=== PATIENT | male | born 1945 | race Caucasian/White ===

== ENCOUNTER → 2018-07-01 | Day surgery (SDC) | payer MEDICARE ==
[2018-06-30 13:28] LABS: BASOPHILS # (AUTO) 0.1 (0.0-0.1); BASOPHILS % 0.9 % (0.0-1.0); EOSINOPHILS # (AUTO) 0.1 (0.0-0.4); EOSINOPHILS % 2.1 % (0.0-6.0); HEMATOCRIT 36.8 % (38.2-49.6); HEMOGLOBIN 11.7 g/dL (14.0-18.0); LYMPHOCYTES # (AUTO) 0.9 (1.0-3.2); MEAN CORPUSCULAR HEMOGLOBIN 29.4 pg (28-32); MEAN CORPUSCULAR HGB CONC 31.8 g/dL (31-35); MEAN CORPUSCULAR VOLUME 92.5 fL (81-99); MONOCYTES # (AUTO) 0.4 (0.2-0.8); MONOCYTES % 7.2 % (4.4-11.3); NEUTROPHILS # (AUTO) 4.3 (2.1-6.9); NEUTROPHILS % 73.3 % (38.7-80.0); PLATELET COUNT 259 x10e3/uL (140-360); RED BLOOD COUNT 3.98 x10e6/uL (4.3-5.7)
[~2018-07-01] MED LIST: ACETAMINOP325 MG/10 PO; AMLODIPINE BESYL5 MG PO; CALCIUM CARBON500 MG PO; CLOPIDOGREL75 MG PO; COLCRYS0.6 MG PO; DICYCLOMINE HCL10 MG PO; DIPHENOXYLATE-1 EACH PO; FAMOTIDINE20 MG PO; FOLIC ACID PO; FUROSEMIDE40 MG PO; GLIMEPIRIDE2 MG PO; GLUCAGON FOR INJ 1 MG VIAL ONE; HYOSCYAMINE SULFATE 0.5 MG/ML AMP ONE; JANUVIA100 MG PO; KLOR-CON 1010 MEQ PO; LASIX20 MG PO; LISINOPRIL10 MG PO; LOVASTATIN40 MG PO; NAPROXEN250 MG PO; OMEPRAZOLE40 MG PO; PANTOPRAZOLE SO40 MG PO; PENTASA500 MG PO; POTASSIUM PO; PROBIOTIC PO; PROPOFOL IV EMULSION 10 MG/ML 50 ML VIAL ONE; ULTRAM 50MG50 MG PO; WATER PILL; ZESTRIL20 MG PO; [UNRECOGNIZED DRUG - REMARK]
[2018-07-01 09:00] VITALS: BP 144/83
--- NOTE | 2018-07-01 09:37 | Operative Report ---
DATE OF PROCEDURE: July 01, 2018 PROCEDURE PERFORMED: Colonoscopy and a polypectomy with biopsies. REFERRING PHYSICIAN: Dr. Alverto Chow INDICATIONS FOR PROCEDURE: Lower abdominal pain, history of Crohn's disease, colonoscopy is being done to re-evaluate the terminal ileum. MEDICATION: Patient was done under MAC. Please see anesthesiologist note. PROCEDURE IN DETAIL: With the patient in left lateral decubitus position, flexible fiberoptic Olympus colonoscope was inserted into the rectum with ease and advanced all the way to the cecum. Moderate to large amount of retained fecal material was noted in the cecum. Also, patient's anal canal was somewhat stenotic. The ileocecal valve was intubated, and the scope was advanced into the terminal ileum. The terminal ileum was ulcerated and stenotic, and the scope could not be advanced any further. Biopsies were obtained. The scope was then withdrawn back into the colon. It was then withdrawn slowly, of the mucosa that was visualized. Scattered diverticular disease was noted throughout. One polyp was noted in the sigmoid colon that was snared. The scope was retroflexed into the distal rectum, and small internal hemorrhoids were noted, none of which was actively bleeding. The scope was then straightened out. It was subsequently withdrawn. Patient tolerated the procedure well. IMPRESSION: 1. Suboptimal to poor prep. 2. Ulcerated stenotic terminal ileum, biopsies obtained. 3. Diverticulosis. 4. Sigmoid colon polyp, snared. 5. Internal hemorrhoids, none actively bleeding. 6. Anal canal stenotic. PLAN: Follow up histology. Patient's Crohn disease not responding well to Pentasa. Will initiate methotrexate therapy. Patient will need a small bowel series. Job#: [id number] cc:ALVERTO CHOW MD
== END | disposition home or self-care (01) ==
LOC: OR 05:23
PROVIDERS: ATTEND Internal Medicine Gastroenterology
DX: K50.90 Crohn's disease, unspecified, without complications (principal); K63.5 Polyp of colon; K57.30 Diverticulosis of large intestine without perforation or abscess without bleeding; K64.8 Other hemorrhoids; K62.4 Stenosis of anus and rectum; K59.00 Constipation, unspecified; K21.9 Gastro-esophageal reflux disease without esophagitis; K44.9 Diaphragmatic hernia without obstruction or gangrene; E11.9 Type 2 diabetes mellitus without complications; I69.351 Hemiplegia and hemiparesis following cerebral infarction affecting right dominant side; E78.5 Hyperlipidemia, unspecified; I10 Essential (primary) hypertension; M10.9 Gout, unspecified; F17.210 Nicotine dependence, cigarettes, uncomplicated; Z88.6 Allergy status to analgesic agent; Z01.810 Encounter for preprocedural cardiovascular examination; Z01.812 Encounter for preprocedural laboratory examination; Z79.02 Long term (current) use of antithrombotics/antiplatelets
CPT/HCPCS: 36415 ×2; 45380; 45385; 82948; 85025; 88305; 93005; J1610; J1980; 45378